=== PATIENT | male | born 1945 | race Asian ===

== ENCOUNTER 2018-06-06 19:41 | Inpatient (IN) | payer MEDICARE, BC ==
[~2018-06-06] VITALS: Ht 165.1 cm; Wt 77.1 kg
[2018-06-06 20:00] VITALS: BP_SYST 137; BP_SYST 154; BP_DIAS 56; BP_DIAS 58
[2018-06-07] VITALS (14 sets, daily range): BP systolic 120–149; BP diastolic 38–80
[2018-06-07] MEDS ORDERED: AMLO2.5T45 PO (01:01)
[2018-06-07] MEDS ORDERED: SEVE800T8 PO (01:08)
[2018-06-07] MEDS ORDERED: CALC300T4 PO (01:08)
[2018-06-07] MEDS ORDERED: ATOR40TA70 PO (01:08)
[2018-06-07] MEDS ORDERED: SUCR500T MT (01:08)
[2018-06-07] MEDS ORDERED: CALC0.253 PO (01:08)
[2018-06-07] MEDS ORDERED: LABE300T3 PO (01:08)
[2018-06-07] MEDS ORDERED: CALC667C PO (01:08)
[2018-06-07 03:24] LABS: BASOPHILS % 0.7 % (0.0-2.0); LYMPHOCYTES % 7.5 % (20.0-50.0); MEAN CORPUSCULAR HEMOGLOBIN 31.3 pg (28.0-32.0); MEAN CORPUSCULAR VOLUME 97.5 fL (80.0-94.0); MEAN PLATELET VOLUME 7.3 fl (7.4-10.4); MONOCYTES % 9.6 % (2.0-8.0); NEUTROPHILS % 75.2 % (40.0-76.0); PLATELET 159 x1000/uL (130-400); RED CELL DISTRIBUTION WIDTH 15.6 % (11.6-14.6)
[2018-06-07 03:30] LABS: CHLORIDE 102 mEq/L (98-107)
[2018-06-07 03:35] LABS: PHOSPHORUS 7.2 mg/dL (2.5-4.9)
[2018-06-07 03:40] LABS: HEMOGLOBIN. 5.6 g/dL (14.0-18.0)
[2018-06-07 03:41] LABS: HEMATOCRIT. 17.6 % (42.0-52.0)
[2018-06-07] MEDS ORDERED: CALCIUM ACETATE 667MG CAPSULE PO SCH (07:50)
[2018-06-07] MEDS ORDERED: SEVELAMER CARBONATE 800 MG TABLET PO SCH (07:50)
[2018-06-07] MEDS ORDERED: MEDICATION NOT ON FORMULARY EA (Calcium Acetate 667 MG) PO SCH (09:00)
[2018-06-07] MEDS: CALCIUM CARBONATE 500MG TABLET CHEW PO SCH ×2 (09:00→17:00)
[2018-06-07] MEDS ORDERED: AMLODIPINE 2.5MG TABLET PO SCH (09:00)
[2018-06-07] MEDS ORDERED: CALCITRIOL 0.25MCG CAPSULE PO SCH (09:00)
[2018-06-07] MEDS ORDERED: LABETALOL HCL 300MG TABLET PO SCH (09:00)
[2018-06-07] MEDS ORDERED: MEDICATION NOT ON FORMULARY EA (Calcitriol 0.25 MCG) PO SCH (09:00)
[2018-06-07] MEDS ORDERED: AMLODIPINE BESYLATE 2.5 MG PO SCH (09:00)
[2018-06-07] MEDS ORDERED: LABETALOL HCL 300 MG PO SCH (09:00)
[2018-06-07] MEDS ORDERED: MEDICATION NOT ON FORMULARY EA (Sevelamer Carbonate (Renvela) 800 MG) PO SCH (09:00)
[2018-06-07] MEDS ORDERED: SUCROFERRIC OXYHYDROXIDE MT SCH (09:00)
[2018-06-07] MEDS ORDERED: CALCIUM CARBONATE 300 MG PO SCH (09:00)
[2018-06-07 17:59] LABS: HEMATOCRIT. 24.3 % (42.0-52.0); HEMOGLOBIN. 8.2 g/dL (14.0-18.0); MEAN CORPUSCULAR HEMOGLOBIN 31.6 pg (28.0-32.0); MEAN CORPUSCULAR VOLUME 93.7 fL (80.0-94.0); MEAN PLATELET VOLUME 7.7 fl (7.4-10.4); PLATELET 157 x1000/uL (130-400); RED BLOOD CELL COUNT 2.59 mill/uL (4.7-6.1); RED CELL DISTRIBUTION WIDTH 16.6 % (11.6-14.6)
[2018-06-07 19:11] LABS: PLATELET ESTIMATE NORMAL
[2018-06-07] MEDS ORDERED: ATORVASTATIN CALCIUM 40MG TABLET PO SCH (21:00)
== END 2018-06-07 18:12 | disposition home or self-care (01) | DRG 377 ==
LOC: 6EST 19:41
PROVIDERS: ADMIT Internal Medicine Nephrology; ATTEND Internal Medicine Nephrology
PROC: 30233N1 Transfusion of Nonautologous Red Blood Cells into Peripheral Vein, Percutaneous Approach (ICD-10-PCS; principal; 2018-06-07)
DX: K62.5 Hemorrhage of anus and rectum (principal); N18.6 End stage renal disease; E46 Unspecified protein-calorie malnutrition; I12.0 Hypertensive chronic kidney disease with stage 5 chronic kidney disease or end stage renal disease; D50.0 Iron deficiency anemia secondary to blood loss (chronic); Z92.3 Personal history of irradiation; Z85.46 Personal history of malignant neoplasm of prostate; Z79.899 Other long term (current) drug therapy; Z88.6 Allergy status to analgesic agent; Z88.8 Allergy status to other drugs, medicaments and biological substances; Z68.28 Body mass index [BMI] 28.0-28.9, adult; K62.7 Radiation proctitis
CPT/HCPCS: 36415; 82270; 84100; 86850; 86900; 86920; J7040; P9016